=== PATIENT | male | born 1960 | race Caucasian/White ===

== ENCOUNTER 2019-05-11 17:29 | Emergency (ER) | payer OTHER, SELFPAY ==
[2019-05-11 17:32] VITALS: BP 121/82; PULSE 61; RESP 18; TEMP 36.6; O2SAT 99
--- NOTE | 2019-05-11 17:49 | W.ED.GENAD ---
Discharge Plan Disposition Patient Disposition: HOME Discharge Details Chief Complaint: Laceration Clinical Impression: Laceration of hand, left Primary Care Provider: Rebekah Sharp ED Provider: Sanjay Dent Home Meds and New Rx's Prescriptions: No Action No Known Home Meds RF: 0 Discharge Instructions Instructions: Laceration (ED) Additional Instructions: Return to the ED or see her primary care physician for suture removal in 10 days. Please take acetaminophen (tylenol) - 650mg every 6 hours by mouth as needed for pain. Return to the ER for any worsening or new concerning symptoms. Referrals: Rebekah Sharp, GRADUATE NURSE [Primary Care Provider] - Medical Decision Making 58-year-old male with laceration to first webspace left hand. Tendon is intact. Neurologically intact distal to laceration. Wound was anesthetized with local lidocaine with epinephrine. Wound irrigated with copious sterile saline. Primary closure performed -please see procedure note. Bacitracin and sterile dressing applied. Usual customary discharge instructions were provided. HPI General Mode of arrival: ambulatory. Date/Time Provider Initiated Documentation: 05/11/19 17:41. Limitations to Documentation: no limitations. Information obtained by: patient. HPI Narrative: 58-year-old male presents with chief complaint of laceration. Patient notes he was cutting wood pinched his finger between a piece of wood and handle of splitting maul and sustained laceration to first left webspace. Laceration is moderate. Laceration was initially bleeding and is now stopped with dressing. No other modifiers. No associated numbness or weakness. This occurred just prior to arrival. Related Data Home Medications Medication Instructions Recorded Confirmed Unknown [No Known Home Meds] 05/11/19 05/11/19 Allergies Allergy/AdvReac Type Severity Reaction Status Date / Time No Known Allergies Allergy Unverified 05/11/19 17:34 General Stated Complaint: Laceration LEV: 4 Review of Systems Integumentary/Breasts Skin/Breast: Reports as per HPI Neurologic Neurologic: Reports as per HPI [facility] Surgical History Appendectomy (~2002) [facility] Arthroplasty of knee (01/05/16) RIGHT KNEE/DR. STEPHENS Colonoscopy - IV Sedation (06/20/13) Colonoscopy - IV Sedation (08/23/16) Family History Mother Age: 92 No problems noted. Father , Blocked arteries at age 90. Personal history of malignant neoplasm Heart disease Sister No problems noted. Brother Asthma Brother No problems noted. Social History Smoking/Tobacco Use Status: Never Alcohol Intake: current Alcohol Intake frequency: holidays/special occasions only Drug use: Never Household members: family Housing: house Number of Children: 3 Communication Needs: None Education Level: college Do you need help understanding health information?: Never current occupation: [employer] Sexually active: Yes Current gender identity: male What type of physical activity do you participate in: weight lifting and running Frequency: 5-6 times per week Carmita/Spiritism: Anabaptism Seatbelt use: always Helmet use: Yes Drive intox or ride w/intox dray truck driver: No Water heater temp set <120 deg: Yes Working smoke detector in home: Yes Fire extinguisher in home: Yes Carbon monox detector in home: Yes Firearms in home: Yes Firearms unloaded and locked: Yes Do you feel safe at home: Yes Do you feel safe in your relationship?: Yes Victim of physical abuse: No Victim of emotional abuse: No Victim of sexual abuse: No Exam Skin Trauma: laceration (2cm first webspace) Extrem Left upper extremity: hand Details: neuromotor exam normal, neurosensory exam normal, tendon exam normal and laceration Course Vital Signs Vital signs: Vital Signs Temperature 36.6 C 05/11/19 17:32 Pulse 61 05/11/19 17:32 Respiratory Rate 18 05/11/19 17:32 Blood Pressure 121/82 05/11/19 17:32 Pulse Oximetry 99 05/11/19 17:32 Temperature 36.6 C 05/11/19 17:32 Temperature Source Temporal Artery Scan 05/11/19 17:32 Pulse 61 05/11/19 17:32 Respiratory Rate 18 05/11/19 17:32 Respiratory Effort Non-Labored 05/11/19 17:32 Blood Pressure 121/82 05/11/19 17:32 Pulse Oximetry 99 05/11/19 17:32 Oxygen Delivery Method Room Air 05/11/19 17:32 Oxygen Flow Rate 0 05/11/19 17:32 Pain Level 5 05/11/19 17:32 Procedures Laceration Laceration 1: Site: hand Side (If applicable): left Size (cm): 2 Description: linear Depth: simple, single layer Local Anesthetic: Lidocaine 1% and with Epi Amount of anesthesia used (mL): 2 Pre-repair: wound explored, irrigated extensively and deep structures intact Skin layer closed with: nylon Size (cm): 4-0 Number of sutures: 6 Technique: simple, interrupted
== END 2019-05-11 18:10 | disposition home or self-care (01) ==
PROVIDERS: Emergency Provider Student in an Organized Health Care Education/Training Program; PCP Nurse Practitioner
DX: S61.412A Laceration without foreign body of left hand, initial encounter (principal); W27.8XXA Contact with other nonpowered hand tool, initial encounter
CPT/HCPCS: 12001

== ENCOUNTER 2019-08-07 09:31 | Outpatient (CLI) | payer OTHER, SELFPAY ==
--- NOTE | 2019-08-07 10:01 | DI.RAD_ITS ---
EXAM: XR LUMBAR SPINE COMPLETE INDICATION: several mos intermittent groin/pelvis discomfort, male pelvic pain, M25.559. COMPARISON: No exams were available for comparison TECHNIQUE: 2D digital imaging was performed. FINDINGS: There are 5 lumbar type vertebral bodies. No acute fracture or dislocation is present. No spondylol ysis or spondylolisthesis is seen. There is mild narrowing of the disc spaces at T12-L1 and L1-L2. Small endplate osteophytes are present at multiple levels of the lumbar spine. There are degenerativ e changes of the facets seen. IMPRESSION: Mild degenerative changes in the lumbar spine.
--- NOTE | 2019-08-07 10:01 | DI.RAD_ITS ---
EXAM: XR HIP PELVIS ADULT BL INDICATION: several months intermittent groin/pelvis discomfort, M25.559. COMPARISON: No exams were available for comparison TECHNIQUE: 2D digital imaging was performed. FINDINGS: Mild joint space narrowing and subchondral sclerosis is seen of the hips bilaterally. Bones are inta ct and normally mineralized. Sacroiliac joints and symphysis pubis are unremarkable. The soft tissu es are unremarkable. IMPRESSION: Mild degenerative changes of the hips bilaterally.
== END 2019-08-07 09:51 ==
PROVIDERS: PCP Nurse Practitioner; Visit Provider Nurse Practitioner
DX: M25.551 Pain in right hip (principal); M25.552 Pain in left hip; R10.2 Pelvic and perineal pain; M16.0 Bilateral primary osteoarthritis of hip; M47.816 Spondylosis without myelopathy or radiculopathy, lumbar region
CPT/HCPCS: 73521; 72110

== ENCOUNTER 2021-02-14 18:22 | Outpatient (REF) | payer OTHER, SELFPAY ==
[2021-02-16 13:52] LABS: COVID-19 RT-PCR UVMMC Result Negative (Negative)
== END 2021-02-14 18:23 | disposition home or self-care (01) ==
LOC: LBN 18:22
PROVIDERS: PCP Nurse Practitioner; Visit Provider Nurse Practitioner
DX: Z20.822 Contact with and (suspected) exposure to COVID-19 (principal); J32.9 Chronic sinusitis, unspecified
CPT/HCPCS: U0003

== ENCOUNTER 2022-09-06 02:32 | Outpatient (CLI) | payer OTHER, SELFPAY ==
[2022-09-06 07:21] LABS: HCT 41.1 % (40.0-50.0); HGB 13.9 g/dL (13.5-17.5); MCH 30.5 pg (27.0-33.0); MCHC 33.8 % (32.0-36.0); MCV 90 fL (80-95); MPV 9.7 fL (8.0-11.0); Platelet Count 171 10^3/uL (130-400); RBC 4.55 10^6/uL (4.36-5.78); RDW 11.9 % (11.8-14.1); RDW-SD 39.8 fL; WBC 3.08 10^3/uL (4.4-10.8)
[2022-09-06 07:45] LABS: ALT 22 U/L (16-63); AST 24 U/L (15-37); Albumin 3.8 g/dL (3.4-5.0); Alkaline Phosphatase 59 U/L (46-116); BUN 16 mg/dL (7-18); Bilirubin, Total 0.5 mg/dL (0.2-1.0); CREATININE 1.1 mg/dL (0.70-1.30); Calcium 8.9 mg/dL (8.5-10.1); Calculated LDL 104 mg/dL (<100); Chloride 105 mmol/L (98-107); Cholesterol 165 mg/dL (<200); Estimated GFR 76.37 (mL/min/1.73m2); Glucose 85 mg/dL (74-106); HDL Cholesterol 54 mg/dL (40-60); Potassium 4.1 mmol/L (3.5-5.1); Sodium 142 mmol/L (136-145); Total Protein 7.2 g/dL (6.4-8.2); Triglyceride 36 mg/dL (<150)
== END 2022-09-06 02:33 | disposition home or self-care (01) ==
LOC: LBO 02:32
PROVIDERS: PCP Nurse Practitioner; Visit Provider Nurse Practitioner
DX: R53.83 Other fatigue (principal); Z13.220 Encounter for screening for lipoid disorders
CPT/HCPCS: 36415; 80053; 80061; 85027

== ENCOUNTER 2022-11-02 10:28 | Day surgery (SDC) | payer OTHER, SELFPAY ==
--- NOTE | 2022-11-01 21:53 | W.PM.DSUDISC ---
Date of service: 11/02/22 Time of Service: 12:16 Discharge Plan Disposition Patient Disposition: Home Condition: Good Discharge Details Reason For Visit: Screening colonoscopy Attending Provider: Marvin Chamberlain Primary Care Provider: Rebekah Sharp Home Meds and New Rx's Prescriptions: No Action No Known Home Meds Discharge Instructions Instructions: Hemorrhoids (GEN) Additional Instructions: Raciel, we were able to complete your colonoscopy today without any difficulty today. I did notice that you have some mild internal hemorrhoids. These can become more prominent when patients do the bowel prep for the colonoscopy. Otherwise I would not worry about these. I did attach a little bit of information here regarding general management of hemorrhoids. I did not see any evidence of tumors or polyps. Based on your family history, I would recommend another colonoscopy in 5 years. 1. If tolerated, consume a soft, low fiber diet for 1-2 days. 2[address] Do not drive, drink alcohol, operate machinery, make critical decisions, or do activities that require coordination or balance for 24 hours. 3. Because air was put into your colon during the procedure, expelling air from your rectum (passing gas or farting) is normal. 4. You may not have a bowel movement for 1-3 days because of the colonoscopy prep. This is normal. 5. Go directly to the emergency room if you notice any of the following: Develop chills (warm to touch), or if you have a thermometer and your temperature is above 101 Difficulty breathing or difficultly swallowing Persistent vomiting Severe abdominal pain, other than gas cramps Severe chest pain Black, tarry stools Any bleeding ? exceeding one tablespoon 6. Call your physician if the site where your intravenous was started becomes red, swollen, painful, and warm to touch. 7. Your physician has reviewed your pre-procedure medications. Please continue to take those medications as previously ordered. You will be given specific information/education regarding any changes to your medications before leaving. Activity:: Activity as Tolerated Diet:: As Tolerated Discharge Orders Discharge Orders: Discharge Order (Routine); Ordered 11/01/22 Ordered By: Marvin Chamberlain DS: Diagnosis Discharge Diagnosis (1) Screening for colon cancer: Status: Acute Asessment and Plan: Negative screening colonoscopy
--- NOTE | 2022-11-01 21:54 | W.COLOREPORT ---
Date of service: 11/02/22 Time of Service: 12:18 Colonoscopy Report Date of procedure: 11/02/22 Pre-op diagnosis general: Screening colonoscopy Post-op diagnosis procedure note: other (Negative screening colonoscopy) Procedure: Colonoscopy Surgeon: Marvin Chamberlain Anesthesia Type: General:No Airway Estimated blood loss (mL): 0 Pathology: none sent Complications: None Disposition: same day Indications: Raciel is a 62 year old man with a first degree relative with colon cancer. He is undergoing his next screening colonoscopy Prep: Miralax/Dulcolax Procedure Start Time: 11:46 Procedure End Time: 12:07 Retraction Time: 13 Findings: Grade 1 internal hemorrhoid Procedure Description: After the induction of monitored anesthetic care, and with the patient in left lateral decubitus position, I began by performing an external anorectal exam.? Perineum and skin were normal, as was the anal verge.? There was no not evidence of external hemorrhoids.? Next, I performed a digital rectal exam.? I did appreciate any abnormal findings.? Next, I advanced a colonoscope into the rectal vault.? I performed retroflexion.? There are grade 1 internal hemorrhoids.? Using insufflation, I then advanced the colonoscope beyond the rectal folds and into the sigmoid colon before advancing towards the cecum.? The quality of the prep was excellent.? The scope was noted to be in the cecum by identification of the ileocecal valve and appendiceal orifice.? I then began withdrawing the colonoscope using repeated irrigation as necessary for full evaluation of the colonic mucosa. ?Once the scope was withdrawn to the level of the rectum, great care was taken to examine portions of the rectal folds.? I did not see any signs of tumors or polyps. Finally, the scope was withdrawn and the patient was brought to the same-day surgery recovery unit as the anesthetic wore off. ?The findings and instructions were shared with the patient prior to discharge.
[2022-11-02 10:35] VITALS: BP 150/95; PULSE 52; RESP 16; TEMP 36.4; O2SAT 98
[2022-11-02] MEDS: Lactated Ringers 1,000 ML 80 ML IV (11:11)
--- NOTE | 2022-11-02 11:11 | ANES.PREOP_ITS ---
General Info Date of Service Date Performed: 11/02/22 Height: 5 ft 10 in Weight: 70.1 kg Body Mass Index (BMI): 22.1 Surgical Procedure: Operation Date: 11/02/22 12:05 Proposed Procedure Side Surgeon p Colonoscopy Marvin Chamberlain MD Meds Allergies and Home Medications Allergies Allergy/AdvReac Type Severity Reaction Status Date / Time No Known Allergies Allergy Verified 11/02/22 10:37 Home Medication Medication Instructions Recorded Unknown [No Known Home Meds] 08/23/22 Current Visit Medications: Current Medications Generic Name Dose Route Start Last Admin Trade Name Freq PRN Reason Stop Dose Admin Hyoscyamine Sulfate 0.125 mg 11/01/22 21:55 Hyoscyamine 0.125 Mg Sl/Oral/Chew SL DIRECTED PRN Ringer's Solution 1,000 mls @ 80 mls/hr 11/02/22 06:00 IV 12/01/22 23:59 [facility] IV Miscellaneous Supplies 1 each 11/02/22 06:00 Iv Access IV 12/01/22 23:59 [facility] Ondansetron HCl 4 mg 11/01/22 21:55 Ondansetron 4 Mg/2 Ml Vial IVP Q4H PRN PRN Nausea / Vomiting Sodium Chloride 0 ml 11/02/22 06:00 Normal Saline Flush 10 Ml Syr IV 12/01/22 23:59 PRN PRN Sodium Chloride 0 ml 11/02/22 06:00 Normal Saline 10 Ml Vial IJ 12/01/22 23:59 DIRECTED PRN Sterile Water 0 ml 11/02/22 06:00 Water,Injection,Sterile 10 Ml Vial IJ 12/01/22 23:59 DIRECTED PRN PFSH Active Problems Active Problems: Problem Status Onset Code Tinea versicolor B36.0 Delayed onset of urination R39.11 Pelvic joint pain M25.559 Sinusitis J32.9 Vitiligo ~2021 L80 Screening for colon cancer Z12.11 Medical History Medical History Snoring 09/29/22 Sleep Clinic - ? of CK but needs further assessment Surgical History Surgical History Appendectomy (~2002) [facility] Colonoscopy - IV Sedation (06/20/13) Colonoscopy - IV Sedation (08/23/16) History of arthroscopic knee surgery Tobacco Smoking/Tobacco Use Status: Never Alcohol Alcohol Intake: current Alcohol intake frequency: holidays/special occasions only Alcohol type: wine Substance Use Substance use: Never Substance use type: does not use Vital Signs and Lab Results Vital Signs Most Recent Vital Signs in EMR: Most Recent Vital Signs Temp Pulse Resp BP Pulse Ox 36.4 C L 52 L 16 150/95 H 98 11/02/22 10:35 11/02/22 10:35 11/02/22 10:35 11/02/22 10:35 11/02/22 10:35 Lab Results Blood Type / Crossmatch: No Data to Display Complete Blood Count: No Data to Display Complete Metabolic Panel: No Data to Display Liver Function Panel: No Data to Display Coagulation Panel: No Data to Display Cardiac Panel: No Data to Display Arterial Blood Gas: No Data to Display Venous Blood Gas: No Data to Display Pancreas Panel: No Data to Display Thyroid Panel: No Data to Display Infectious Disease: No Data to Display Blood Cultures: No Data to Display Toxicology Panel: No Data to Display Anesthesia Assessment and Plan Anesthesia History Personal History: No History of Anesthesia Complications Family History: No Family History of Anesthesia Complications Exercise Tolerance Exercise Tolerance: Metabolic Equivalents>4 Pertinent Negatives Pertinent Negatives: No Symptoms of GERD Cardiac & Pulmonary Exam Cardiac Exam: Normal S1/S2 Heart Sounds Pulmonary Exam: Clear Bilateral Breath Sounds Implantable Cardiac Device Does patient have a Pacemaker or an ICD?: No Airway Exam Known Difficult Airway: No Mallampati Class: 3 Mouth Opening: Normal (> 3cm) Thyromental Distance: Greater than 3 cm Neck Range of Motion: Full ROM Neck Circumference: Normal Teeth Condition: Normal Dentition ASA Classification ASA Score: ASA 1 Emergency Case?: No NPO Status NPO Status: NPO Clears >2 hours, Solids >8 hours Anesthesia Plan Resuscitation Status: Full Code Anesthesia Technique: General Anesthesia Airway Planned: Natural Airway Monitors Used: Standard Monitors
[2022-11-02 11:38] VITALS: BMI 22.1
[2022-11-02 12:17] VITALS: BP 116/85; PULSE 48; RESP 14; TEMP 36.3; O2SAT 98
--- NOTE | 2022-11-02 12:32 | W.ANESPOSTOP ---
Postoperative Evaluation Date, Time and Location Date Performed: 11/02/22 Time Performed: 12:32 Patient Location: Day Surgery Unit Vital Signs Most Recent Imported Vital Signs: Most Recent Vital Signs Temp Pulse Resp BP Pulse Ox 36.3 C L 48 L 14 116/85 98 11/02/22 12:17 11/02/22 12:17 11/02/22 12:17 11/02/22 12:17 11/02/22 12:17 Pain Score Most Recent Pain Score: Most Recent Pain Score Pain Level 0 11/02/22 12:17 Assessment Mental Status: Awake (Alert & Oriented to Patient Baseline) Airway and Respiratory Function: Patent airway with normal (patient baseline) respiratory exam Cardiovascular Function: Hemodynamically Stable Hydration Status: Adequately Hydrated Nausea & Vomiting: No Nausea or Vomiting Pain: Pt. Denies Any Pain Peripheral Nerve Block: Patient did not receive a nerve block
[2022-11-02 12:52] VITALS: BP 135/88; PULSE 47; RESP 16; TEMP 36.1; O2SAT 100
== END 2022-11-02 13:15 | disposition home or self-care (01) ==
PROVIDERS: PCP Nurse Practitioner; Visit Provider Surgery
PROC: 0DJD8ZZ Inspection of Lower Intestinal Tract, Via Natural or Artificial Opening Endoscopic (ICD-10-PCS; CPT 45378; principal; 2022-11-02 12:00)
DX: Z12.11 Encounter for screening for malignant neoplasm of colon (principal); Z80.0 Family history of malignant neoplasm of digestive organs; K64.0 First degree hemorrhoids
CPT/HCPCS: 45378

== ENCOUNTER 2025-04-27 02:04 | Outpatient (CLI) | payer OTHER, SELFPAY ==
--- NOTE | 2025-04-27 07:50 | DI.RAD_ITS ---
Exam(s) XR FOOT LT COMPLETE XR FOOT RT COMPLETE EXAM: XR FOOT LT COMPLETE CLINICAL HISTORY: Left foot pain/hammer toes,M79.672,M20.42. TECHNIQUE: 2D digital imaging was performed. Three views of both feet weight- bearing. COMPARISON: CR XR FOOT RT COMPLETE from 04/27/2025 FINDINGS: BONES: No acute fracture is present. No bony destructive lesion is seen. JOINTS: No dislocation present. Bilateral hammertoe deformities. Plantar arches are maintained bilaterally. No significant degenerative changes. SOFT TISSUE: Normal. IMPRESSION: Bilateral hammertoe deformities. DATA REPOSITORY: RADIATION DOSE DELIVERED:
== END 2025-04-27 02:24 ==
LOC: DI 02:04
PROVIDERS: Visit Provider Podiatrist
DX: M79.672 Pain in left foot (principal); M20.42 Other hammer toe(s) (acquired), left foot; M79.671 Pain in right foot; M20.41 Other hammer toe(s) (acquired), right foot
CPT/HCPCS: 73630